=== PATIENT | female | born 1955 | race Caucasian/White ===

== ENCOUNTER → 2023-12-04 09:43 | Outpatient (REF) | payer OTHER, MEDICARE, SELFPAY | LOC: HWRAD 09:43 | PROVIDERS: ATTENDING PHYSICIAN Specialist; FAMILY PHYSICIAN Family Medicine; REFERRING PHYSICIAN Family Medicine | DX: M25.511 Pain in right shoulder (principal) | CPT/HCPCS: 73200 ==

== ENCOUNTER 2023-12-12 06:32 | Day surgery (SDC) | payer OTHER, MEDICARE, SELFPAY ==
--- NOTE | 2023-11-10 10:59 | CM ---
Patient is scheduled for an elective R Reverse TSA on 12/12/23- she is a same day patient. Spoke with patient prior to surgery. Patient has had prior orthopedic surgeries at . Reintroduced role of Orthopedic Navigator. Patient reports that she
lives alone in a one story apartment. There are four steps to enter. Currently she functions independently. She does not use any DME and has never had VN services. PCP is Rachael Beverly.
Discussed orthopedic program and post surgical plans. Patient will return home when directed by surgeon. Reviewed MD follow up and transition to outpatient therapy. Patient is in agreement with tentative plan and states that her son will be staying
with her initially.
Patient will complete online education.
Plan: Orthopedic Navigator will be involved in the care of patient after surgery and will reassess discharge needs at that time.
[2023-11-28 09:40] VITALS: BMI 49.7
[2023-11-28 10:10] LABS: Hematocrit 39.3 % (37.0-47.0); Hemoglobin 14.1 g/dL (12.0-16.0); Mean Corp Hgb Conc. 35.9 g/dL (33.0-37.0); Mean Corpuscular Hgb 31.1 pg (27.0-31.0); Mean Corpuscular Volume 86.6 fL (81.0-99.0); Mean Platelet Volume 9.8 fL (7.4-10.4); Platelet Count 163 10^3/uL (130-400); Red Blood Cell Count 4.54 10^6/uL (4.20-5.40); Red Cell Dist. Width 12.4 % (11.5-14.5); White Blood Cell Count 6.2 10^3/uL (4.8-10.8)
[2023-11-28 10:24] LABS: ALT (SGPT) 22 U/L (0-35); AST (SGOT) 31 U/L (14-36); Albumin 4.5 g/dl (3.5-5.0); Alkaline Phosphatase 58 U/L (38-126); Blood Urea Nitrogen 18 mg/dl (7-17); Calcium 9.5 mg/dl (8.4-10.2); Carbon Dioxide 20 mmol/L (22-30); Chloride 107 mmol/L (98-107); Estimated Creatinine Clearance 103 ml/min; Glucose 115 mg/dl (70-99); Potassium 4.3 mmol/L (3.5-5.1); Sodium 139 mmol/L (135-145); Total Bilirubin 0.4 mg/dl (0.2-1.3); Total Protein 6.6 g/dl (6.3-8.2); eGFR > 60.00
[2023-11-28 10:53] LABS: Glycohemoglobin (HgbA1c) 5.6 % (4.0-5.6)
[2023-12-12] VITALS (11 sets, daily range): BP systolic 77–134; BP diastolic 45–81; BMI 49.7
[2023-12-12] MEDS: CELEBREX 200 MG PO (06:24)
[2023-12-12] MEDS: TYLENOL 1000 MG PO (06:24)
[2023-12-12] MEDS: NORMOSOL-R 1000 IV (06:25)
[2023-12-12 06:36] LABS: Glucose - Point of Care 105 mg/dl (70-99)
[2023-12-12 09:42] LABS: Glucose - Point of Care 131 mg/dl (70-99)
[2023-12-12] MEDS: ANCEF 5 IV (11:54)
== END 2023-12-12 12:17 | disposition home or self-care (01) ==
LOC: SDS 06:32
PROVIDERS: ATTENDING PHYSICIAN Specialist; FAMILY PHYSICIAN Family Medicine
DX: M19.011 Primary osteoarthritis, right shoulder (principal); E66.01 Morbid (severe) obesity due to excess calories; Z68.43 Body mass index [BMI] 50.0-59.9, adult; M75.121 Complete rotator cuff tear or rupture of right shoulder, not specified as traumatic
CPT/HCPCS: 23472; 36415; 73020; 80053; 82962; 83036; 85027; 87070; 93005; C1713; C1776

== ENCOUNTER → 2024-09-14 11:11 | Outpatient (REF) | payer OTHER, SELFPAY | LOC: HWWDC 11:11 | PROVIDERS: ATTENDING PHYSICIAN Nurse Practitioner Adult Health; FAMILY PHYSICIAN Family Medicine | DX: Z12.31 Encounter for screening mammogram for malignant neoplasm of breast (principal) | CPT/HCPCS: 77063; 77067 ==